=== PATIENT | female | born 1970 | race Native Hawaiian/Other Pacific Islander ===

== ENCOUNTER 2021-10-02 19:33 | Inpatient (IN) | payer OTHER ==
[2021-10-02] VITALS (7 sets, daily range): BP systolic 120–226; BP diastolic 67–126; TEMP 98.7
[~2021-10-02] VITALS: Ht 152.4 cm; Wt 120.3 kg
[2021-10-02 19:56] LABS: PLATELET COUNT 222 K/uL (152-353)
[2021-10-02 19:59] LABS: POTASSIUM 4.1 mmol/L (3.6-5.2)
[2021-10-03] VITALS (7 sets, daily range): BP systolic 126–157; BP diastolic 68–85; TEMP 98.1–98.5; Ht 152.4 cm; Wt 120.3 kg
[2021-10-03 05:39] LABS: PLATELET COUNT 212 K/uL (152-353)
[2021-10-03 06:06] LABS: POTASSIUM 3.9 mmol/L (3.6-5.2)
[2021-10-03] MEDS ORDERED: LOSA50TA PO (14:13)
[2021-10-03] MEDS ORDERED: FUROSEMIDE20 MG PO (14:27)
[2021-10-03] MEDS ORDERED: IPRATROPIUM/ INH (14:29)
[2021-10-03] MEDS ORDERED: BREO ELLIPTA 101 INH INH (14:29)
[2021-10-03] MEDS ORDERED: VITAMIN D50000 UNIT PO (14:30)
[2021-10-03] MEDS ORDERED: ALBUTEROL108 MCG/AC INH (14:31)
[2021-10-04] VITALS: BP 146/84; TEMP 98.1
[2021-10-04 04:00] VITALS: BP 139/81; TEMP 97.7
[2021-10-04 08:00] VITALS: BP 117/84; TEMP 98
[2021-10-04 12:00] VITALS: BP 120/75; TEMP 98.3
[2021-10-04 16:00] VITALS: BP 118/78; TEMP 98.5
[2021-10-04 20:00] VITALS: BP 145/79; TEMP 99
[2021-10-05] VITALS: BP 162/85; TEMP 98.4
[2021-10-05 04:00] VITALS: BP 113/66; TEMP 98.2
[2021-10-05 05:25] LABS: PLATELET COUNT 207 K/uL (152-353)
[2021-10-05 05:32] LABS: POTASSIUM 4.7 mmol/L (3.6-5.2)
[2021-10-05 08:00] VITALS: BP 140/85; TEMP 97.5
[2021-10-05 12:00] VITALS: BP 136/76; TEMP 97.6
[2021-10-05 16:05] VITALS: BP 144/89; TEMP 97.8
[2021-10-05 20:00] VITALS: BP 139/78; TEMP 98.6
[2021-10-06] VITALS: BP 126/66; TEMP 98.4
[2021-10-06 04:00] VITALS: BP 99/56; TEMP 98.6
[2021-10-06 04:57] LABS: PLATELET COUNT 216 K/uL (152-353)
[2021-10-06 05:09] LABS: POTASSIUM 4.2 mmol/L (3.6-5.2)
[2021-10-06 08:00] VITALS: BP 118/77; TEMP 98.1
[2021-10-06 12:00] VITALS: BP 135/85; TEMP 97.7
[2021-10-06 16:00] VITALS: BP 127/71; TEMP 98
[2021-10-06 20:00] VITALS: BP 136/76; TEMP 98.4
[2021-10-07] VITALS: BP 151/52; TEMP 97.7
[2021-10-07 04:00] VITALS: BP 156/89; TEMP 97.8
[2021-10-07 06:40] LABS: PLATELET COUNT 206 K/uL (152-353)
[2021-10-07 08:00] VITALS: BP 131/73; TEMP 98.2
[2021-10-07 12:00] VITALS: BP 132/74; TEMP 98
[2021-10-07 16:09] VITALS: BP 133/77; TEMP 97.8
[2021-10-07 20:00] VITALS: BP 147/87; TEMP 98.6
[2021-10-08] VITALS: BP 147/78; TEMP 98.6
[2021-10-08 04:00] VITALS: BP 149/88; TEMP 98.8
[2021-10-08 08:00] VITALS: BP 146/81; TEMP 98.1
[2021-10-08] MEDS ORDERED: FURO20TA67 PO (09:16)
[2021-10-08] MEDS ORDERED: ROPINIROLE0.5 MG PO (09:16)
[2021-10-08] MEDS ORDERED: CEFD300C2 PO (09:17)
[2021-10-08] MEDS ORDERED: PRED20TA27 PO (09:18)
== END 2021-10-08 11:27 | disposition home or self-care (01) | DRG 202 ==
LOC: ED 19:33 → MED/SURG 23:00
PROVIDERS: ADMIT Emergency Medicine Emergency Medical Services; ATTEND Internal Medicine
DX: J45.41 Moderate persistent asthma with (acute) exacerbation (principal); I50.33 Acute on chronic diastolic (congestive) heart failure; Z68.43 Body mass index [BMI] 50.0-59.9, adult; J96.11 Chronic respiratory failure with hypoxia; J44.1 Chronic obstructive pulmonary disease with (acute) exacerbation; I10 Essential (primary) hypertension; G25.81 Restless legs syndrome; G47.33 Obstructive sleep apnea (adult) (pediatric)
CPT/HCPCS: 36415; 36600; 51702; 80048; 80053; 81002; 82805; 83735; 83880; 84484; 85027; 87040; 87635; 93005; 94660; 94664; 94760; 96365; 96367; 96374; 96375; 99220; 99284; G0378; J0360; J0456; J0696; J2920; U0003

== ENCOUNTER 2021-10-10 13:18 | Emergency (ER) | payer OTHER ==
[~2021-10-10] VITALS: Ht 157.5 cm; Wt 113.4 kg
[~2021-10-10 13:18] MED LIST: ALBUTEROL108 MCG/AC INH; BREO ELLIPTA 101 INH INH; CEFD300C2 PO; FURO20TA67 PO; FUROSEMIDE20 MG PO; IPRATROPIUM/ INH; LOSA50TA PO; PRED20TA27 PO; ROPINIROLE0.5 MG PO; VITAMIN D50000 UNIT PO
[2021-10-10 15:17] VITALS: BP 128/76; TEMP 98.4
== END 2021-10-10 15:17 | disposition home or self-care (01) ==
LOC: ED 13:18
DX: R06.02 Shortness of breath (principal); T50.995A Adverse effect of other drugs, medicaments and biological substances, initial encounter; X58.XXXA Exposure to other specified factors, initial encounter; Y92.89 Other specified places as the place of occurrence of the external cause
CPT/HCPCS: 94664; 96372; 99283; J1200; J2930

== ENCOUNTER 2021-10-14 16:44 | Emergency (ER) | payer OTHER ==
[~2021-10-14] VITALS: Ht 157.5 cm; Wt 113.4 kg
[2021-10-14 17:00] VITALS: TEMP 97.8
[2021-10-14 18:19] LABS: PLATELET COUNT 192 K/uL (152-353)
[2021-10-14 21:19] VITALS: BP 122/80
--- NOTE | 2021-10-17 11:12 | NUR ---
[employer] called and spoke with patient and she said that she was doing much better since her dischage home, and that everyone here was good to her during her stay. She denies any needs at this time.
== END 2021-10-14 21:19 | disposition home or self-care (01) ==
LOC: ED 16:44
PROVIDERS: Emergency Medicine Emergency Medical Services
DX: I10 Essential (primary) hypertension (principal); R60.0 Localized edema; Z91.14 Patient's other noncompliance with medication regimen; Z20.822 Contact with and (suspected) exposure to COVID-19
CPT/HCPCS: 80053; 81002; 83880; 84484; 85008; 85027; 87635; 93005; 94664; 96374; 96375; 99284; J1940; U0003

== ENCOUNTER 2021-11-16 20:17 | Emergency (ER) | payer OTHER ==
[~2021-11-16] VITALS: Ht 152.4 cm; Wt 108.9 kg
[2021-11-16 21:10] LABS: PLATELET COUNT 229 K/uL (152-353)
[2021-11-16 21:14] LABS: POTASSIUM 3.6 mmol/L (3.6-5.2)
[2021-11-16 21:21] LABS: PARTIAL THROMBOPLASTIN TIME 27.4 SECONDS (24.5-33.6)
[2021-11-17 00:05] VITALS: BP 116/75; TEMP 97.9
== END 2021-11-17 00:05 | disposition home or self-care (01) ==
LOC: ED 20:17
PROVIDERS: Emergency Medicine
DX: R07.89 Other chest pain (principal)
CPT/HCPCS: 36415; 80053; 81002; 83880; 84484; 85027; 85379; 85610; 85730; 93005; 99283